=== PATIENT | female | born 1955 | race Caucasian/White ===

== ENCOUNTER 2019-09-17 12:03 | Emergency (ER) | payer MEDICARE, OTHER ==
[~2019-09-17] VITALS: Ht 160 cm; Wt 49.0 kg
--- NOTE | 2019-09-17 12:33 | NUR ---
PT VERY ANXIOUS SINCE BEING OFF OF CLONAZEPAM. REPORTS PRIMARY DR WOULD REFILL AFTER PT ARRIVED TO [place] FROM [place], NOW PT REPORTS DR REFUSES TO REFILL CLONAZEPAM, WHICH PT HAS REPORTEDLY BEEN ON SINCE 2013, 1MG BID. PT TEARFUL, ANXIOUS, REPORTS SLEEP DEPRIVATION, DIZZINESS. PT ALSO C/O URINARY FREQUENCY X SEVERAL DAYS AND RLQ ABDOMINAL PAIN, NON TENDER UPON PALPATION. AMBULATE TO BATHROOM WITH ONE PERSON ASSIST FOR SENSATION OF NEEDING TO URINATE, UNABLE TO PRODUCE SPECIMEN. HOB TO LEVEL OF COMFORT, BLANKET APPLIED, RAILS UP, CALL LIGHT IN REACH. AWAITING ERMD EVAL. CURTAIN PULLED FOR PT PRIVACY.
[2019-09-17] MEDS ORDERED: CHLORDIAZEPOXIDE 25 MG CAPSULE PO PRN (13:00)
[2019-09-17 13:15] VITALS: BP 125/58
--- NOTE | 2019-09-17 13:15 | NUR ---
PERFORMED US OF BLADDER AT BEDSIDE TO ACCESS RETENTION, BLADDER NOT DISTENDED AT THIS TIME, OK FOR CLEAN CATCH IF PT UNABLE WILL STRAIGHT CATH PT. ORDERS RECIEVED FOR PRN MEDICATION FOR ANXIETY
--- NOTE | 2019-09-17 13:45 | NUR ---
PT VERY ANXIOUS IN RM, MEDICATED PER NOV. ASSISTED TO BR TO OBTAIN US SAMPLE. SAMPLE SENT TO LAB.
[2019-09-17 13:46] LABS: MICROSCOPIC AUTO
[2019-09-17 13:50] LABS: CULTURE INDICATED? NO
== END 2019-09-17 15:26 | disposition home or self-care (01) ==
LOC: ED 14:39
DX: R10.31 Right lower quadrant pain (principal); F41.1 Generalized anxiety disorder; R06.4 Hyperventilation; F19.230 Other psychoactive substance dependence with withdrawal, uncomplicated; R30.0 Dysuria
CPT/HCPCS: 81001; 87086; 99283

== ENCOUNTER 2019-10-01 11:42 | Emergency (ER) | payer MEDICARE ==
[~2019-10-01] VITALS: Ht 160 cm; Wt 48.6 kg
--- NOTE | 2019-10-01 13:03 | NUR ---
PT PRESENTS TO ED WITH C/O ANXIETY, WORSENING SINCE SHE HAS BEEN TAKEN OFF OF CLONAZEPAM WEEKS AGO. PT WAS SEEN IN THIS ED FOR SAME COMPLAINT 09/17/18 AND PRESCRIBED LIBRIUM AT THAT TIME. PT STATES THIS HELPED, SHE HAS SINCE SEEN A PSYCHIATRIST WHO PRESCRIBED HER RISPERIDONE. PT STATES ANXIETY HAS INCREASED SINCE STARTING THIS MED (STARTED 1 WEEK AGO, LAST DOSE LAST NIGHT), ALSO EXPERIENCING ANXIETY, DIZZINESS, AND INSOMNIA. PT A&O, RESPS EVEN AND UNLABORED, NEURO INTACT. EKG TAKEN IN TRIAGE. ALL MONITORS IN PLACE, PT IS NSR ON JUNIOR LINUX ADMINISTRATOR WITH NO ECTOPY. EDMD LAW AT BEDSIDE FOR INITIAL ASSESSMENT.
[2019-10-01] MEDS ORDERED: LORazepam 1MG TABLET ONE (13:28)
[2019-10-01] MEDS ORDERED: LORazepam 1MG TABLET PO ONE (13:30)
[2019-10-01 13:32] LABS: BASOPHILS % (AUTO) 0 % (0-1); EOSINOPHILS # (AUTO) 0.01 x10^3/uL (0-0.4); EOSINOPHILS % (AUTO) 0 % (1-7); LYMPHOCYTES # (AUTO) 0.88 x10^3/uL (1-3.4); LYMPHOCYTES % (AUTO) 13 % (22-44); MD NO; MEAN CORPUSCULAR HEMOGLOBIN 34.1 pg (27.0-34.8); MEAN CORPUSCULAR HGB CONC 33.5 g/dL (32.4-35.8); MEAN CORPUSCULAR VOLUME 101.6 fL (80-100); MONOCYTES # (AUTO) 0.22 x10^3/uL (0.2-0.8); MONOCYTES % (AUTO) 3 % (2-9); NEUTROPHILS # (AUTO) 5.48 x10^3/uL (1.8-6.8); NEUTROPHILS % (AUTO) 83 % (42-75); PLATELET COUNT 213 x10^3/uL (130-400); RED BLOOD COUNT 4.77 x10^6/uL (3.82-5.3); RED CELL DISTRIBUTION WIDTH 13.4 % (9.6-15.2)
[2019-10-01 13:46] LABS: ANION GAP 6 mmol/L (5-15); CALCIUM 9.1 mg/dL (8.5-10.1); CHLORIDE 114 mmol/L (98-107)
--- NOTE | 2019-10-01 13:50 | NUR ---
[employer] FOOD AND NUTRITION PROFESSOR NEW AT BEDSIDE FOR CONSULT. EDMD LAW NOTIFIED PT SCORES MODERATE SUICIDE RISK D/T REMOTE HX SUICIDE ATTEMPT. PT DENIES SI AT THIS TIME. PER MD LAW, LOW SUICIDE PRECAUTIONS ONLY ARE APPROPRIATE AT THIS TIME.
[2019-10-01 13:58] LABS: CREATININE 0.86 mg/dL (0.55-1.02)
[2019-10-01 14:47] VITALS: BP 130/71
--- NOTE | 2019-10-01 14:48 | NUR ---
RN given instructions to dc pt from LOLLY Ospina and MD Jacobson. pt given dc instructions and script, educated regarding rx for seroquel and zoloft. pt is calm and cooperative at this time. pt a&o, resps even and unlabored, nsr on mattress weaver with no ectopy. pt amb to dc desk with steady gait with friend who is to drive her home. shukrin at dc.
== END 2019-10-01 14:49 | disposition home or self-care (01) ==
LOC: ED 14:45
DX: F41.1 Generalized anxiety disorder (principal); F32.9 Major depressive disorder, single episode, unspecified; F43.10 Post-traumatic stress disorder, unspecified
CPT/HCPCS: 36415; 80048; 82040; 84443; 85025; 93005; 99284

== ENCOUNTER 2020-06-21 16:44 | Emergency (ER) | payer MEDICARE ==
[~2020-06-21] VITALS: Ht 160 cm; Wt 56.0 kg
[2020-06-21 16:56] VITALS: BP 153/66
[2020-06-21 17:49] LABS: ALBUMIN 3.7 g/dL (3.4-5.0); ANION GAP 6 mmol/L (5-15); CALCIUM 8.9 mg/dL (8.5-10.1); CHLORIDE 107 mmol/L (98-107)
[2020-06-21 17:53] LABS: ALANINE AMINOTRANSFERASE 38 U/L (12-78); ALKALINE PHOSPHATASE 67 U/L (45-117); BILIRUBIN,TOTAL 0.3 mg/dL (0.2-1.0); TOTAL PROTEIN 6.8 g/dL (6.4-8.2)
[2020-06-21 17:55] LABS: BASOPHILS % (AUTO) 1 % (0-1); EOSINOPHILS % (AUTO) 2 % (1-7); LYMPHOCYTES % (AUTO) 30 % (22-44); MEAN CORPUSCULAR HEMOGLOBIN 33.5 pg (27.0-34.8); MEAN CORPUSCULAR HGB CONC 33.1 g/dL (32.4-35.8); MEAN PLATELET VOLUME 8.6 fL (7.4-10.4); MONOCYTES % (AUTO) 7 % (2-9); NEUTROPHILS % (AUTO) 61 % (42-75); PLATELET COUNT 256 x10^3/uL (130-400); RED BLOOD COUNT 4.48 x10^6/uL (3.82-5.3); RED CELL DISTRIBUTION WIDTH 13.6 % (9.6-15.2)
[2020-06-21 17:59] LABS: MD NO
[2020-06-21 18:11] LABS: MICROSCOPIC NOT IND
--- NOTE | 2020-06-21 18:25 | NUR ---
PROFESSOR OF BIOSTATISTICS: PT AMBULATORY TO ROOM WITH STEADY GAIT FROM LOBBY WITH YARDAGE CALLER
--- NOTE | 2020-06-21 18:49 | NUR ---
PT SITTING UP IN BED, RESPIRATIONS EVEN AND UNLABORED ON RA. NAD NOTED AT THIS TIME. ERMD IN TO ASSESS PT. AWAITING ORDERS.
--- NOTE | 2020-06-21 19:04 | NUR ---
REPORT TO MARTHA KAUR.
--- NOTE | 2020-06-21 20:08 | NUR ---
Pt wanting to leave prior to receiving TSH results. MD notified. RN reported to pt per MD that she should follow up with PCP and call back for TSH results. Pt verbalized understanding. Ambulatory at discharge. Refused discharge VS.
== END 2020-06-21 20:13 | disposition home or self-care (01) ==
LOC: ED 20:00
DX: M79.18 Myalgia, other site (principal); N64.4 Mastodynia; K21.9 Gastro-esophageal reflux disease without esophagitis; M19.90 Unspecified osteoarthritis, unspecified site; Z96.649 Presence of unspecified artificial hip joint
CPT/HCPCS: 36415; 71045; 80053; 81003; 84443; 85025; 93005; 99285